=== PATIENT | female | born 1940 | race Caucasian/White ===

== ENCOUNTER 2017-06-17 07:49 | Day surgery (SDC) | payer MEDICAID, OTHER ==
[~2017-06-17] VITALS: Ht 157.5 cm; Wt 70.5 kg
[~2017-06-17 07:49] MED LIST: MitoMYcin 0.2 MG/VIAL KIT FOR OPHTHALMIC USE OS ONE
[2017-06-17] MEDS ORDERED: FentaNYL CITRATE-PF 100 MCG/2 ML VIAL IVP ONE (07:50)
[2017-06-17] MEDS ORDERED: MIDAZOLAM HCL 2 MG/2 ML VIAL IVP ONE (07:50)
[2017-06-17] MEDS ORDERED: BALANCED SALT 15 ML OPHTHALMIC IRRIG.SOLN OS ONE (07:50)
[2017-06-17] MEDS ORDERED: POVIDONE-IODINE 10% 15 ML SOLUTION UD TP ONE (07:50)
[2017-06-17] MEDS ORDERED: NEOMYCIN/POLYMYXIN B/DEXAMETH 3.5 GM OPHTHALMIC OINTMENT OD ONE (07:50)
[2017-06-17] MEDS ORDERED: TETRACAINE HCL/PF 0.5% 4 ML OPHTHALMIC SOLUTION OD ONE (07:50)
[2017-06-17] MEDS ORDERED: LIDOCAINE HCL 2%/EPI 1:200,000/PF 10 ML VIAL IARTIC ONE (07:50)
[2017-06-17] MEDS ORDERED: BUPIVACAINE HCL/PF 0.75% 10 ML OPHTHALMIC SOLUTION OD ONE (07:50)
[2017-06-17] MEDS ORDERED: DICLOFENAC SODIUM 0.1% 2.5 ML OPHTHALMIC SOLUTION ONE (08:06)
[2017-06-17] MEDS ORDERED: MOXIFLOXACIN HCL 0.5% 3 ML OPHTHALMIC SOLUTION ONE (08:06)
[2017-06-17] MEDS ORDERED: RINGERS SOLUTION,LACTATED 500 ML IV ONE ×2 (08:06→09:00)
[2017-06-17] MEDS ORDERED: MULT1TAB70 PO (08:42)
[2017-06-17] MEDS ORDERED: CALC-1038 PO (08:42)
[2017-06-17] MEDS ORDERED: ASPI-1182 PO (08:42)
[2017-06-17] MEDS ORDERED: MOXIFLOXACIN HCL 0.5% 3 ML OPHTHALMIC SOLUTION OS ONE (09:00)
[2017-06-17] MEDS ORDERED: DICLOFENAC SODIUM 0.1% 2.5 ML OPHTHALMIC SOLUTION OS ONE (09:00)
[2017-06-17 09:17] LABS: GLUCOSE,POINT OF CARE 82 MG/DL (70-110)
== END 2017-06-17 13:15 | disposition home or self-care (01) ==
LOC: SURGERY 07:49
PROVIDERS: ATTEND Specialist
DX: H11.052 Peripheral pterygium, progressive, left eye (principal); K21.9 Gastro-esophageal reflux disease without esophagitis; F41.9 Anxiety disorder, unspecified; Z79.82 Long term (current) use of aspirin; Z90.89 Acquired absence of other organs; Z90.710 Acquired absence of both cervix and uterus; Z79.899 Other long term (current) drug therapy
CPT/HCPCS: 65426; 82962; 88304; 93005; C1768; J2250; J3010; J3490; J7120

== ENCOUNTER 2018-03-03 07:33 | Day surgery (SDC) | payer OTHER ==
[~2018-03-03] VITALS: Ht 162.6 cm; Wt 70.0 kg
[~2018-03-03 07:33] MED LIST changes: +ASPI-1182 PO; +CALC-1038 PO; +HYPR15DR23 PO; +MULT1TAB70 PO; -MitoMYcin 0.2 MG/VIAL KIT FOR OPHTHALMIC USE OS ONE; +VITAD400 PO
[2018-03-03] MEDS ORDERED: MIDAZOLAM HCL 2 MG/2 ML VIAL IVP ONE (07:34)
[2018-03-03] MEDS ORDERED: DICLOFENAC SODIUM 0.1% 2.5 ML OPHTHALMIC SOLUTION ONE (08:44)
[2018-03-03] MEDS ORDERED: RINGERS SOLUTION,LACTATED 500 ML IV ONE ×2 (08:44→09:00)
[2018-03-03] MEDS ORDERED: MOXIFLOXACIN HCL 0.5% 3 ML OPHTHALMIC SOLUTION ONE (08:45)
[2018-03-03] MEDS ORDERED: TROPICAMIDE 1% 2 ML OPHTHALMIC SOLUTION ONE (08:45)
[2018-03-03] MEDS ORDERED: PHENYLEPHRINE HCL 2.5% 2 ML OPHTHALMIC SOLUTION ONE (08:45)
[2018-03-03] MEDS ORDERED: MOXIFLOXACIN HCL 0.5% 3 ML OPHTHALMIC SOLUTION OS ONE (09:00)
[2018-03-03] MEDS ORDERED: 0.9% SODIUM CHLORIDE 10 ML SYRINGE IVP PRN (09:00)
[2018-03-03] MEDS ORDERED: DICLOFENAC SODIUM 0.1% 2.5 ML OPHTHALMIC SOLUTION OS ONE (09:00)
[2018-03-03] MEDS: TROPICAMIDE 1% 2 ML OPHTHALMIC SOLUTION OS SCH ×2 (09:06→09:11)
[2018-03-03] MEDS: PHENYLEPHRINE HCL 2.5% 2 ML OPHTHALMIC SOLUTION OS SCH ×2 (09:06→09:11)
[2018-03-03] MEDS ORDERED: TETRACAINE HCL VISCOUS 0.5% 0.6 ML OPHTHALMIC SOLUTION ONE (21:53)
[2018-03-03] MEDS ORDERED: LIDOCAINE HCL 1% 20 ML VIAL ONE (21:53)
[2018-03-03] MEDS ORDERED: POVIDONE-IODINE 10% 15 ML SOLUTION UD ONE (21:53)
[2018-03-03] MEDS ORDERED: HYALURONATE SODIUM 12 MG/ML 0.8 ML SYRINGE IO ONE (21:53)
[2018-03-03] MEDS ORDERED: HYALURONATE SOD/CHONDROITIN SOD 0.5 ML VIAL IO ONE (21:53)
[2018-03-03] MEDS ORDERED: DEXAMETHASONE SOD PHOS 4 MG/ML VIAL ONE (21:53)
== END 2018-03-03 12:10 | disposition short-term general hospital (02) ==
LOC: SURGERY 07:33
PROVIDERS: ATTEND Specialist
DX: E11.36 Type 2 diabetes mellitus with diabetic cataract (principal); H25.012 Cortical age-related cataract, left eye; I10 Essential (primary) hypertension; F41.8 Other specified anxiety disorders; K21.9 Gastro-esophageal reflux disease without esophagitis; G47.33 Obstructive sleep apnea (adult) (pediatric); Z79.82 Long term (current) use of aspirin; Z90.710 Acquired absence of both cervix and uterus; Z90.89 Acquired absence of other organs; Z98.890 Other specified postprocedural states; Z79.899 Other long term (current) drug therapy
CPT/HCPCS: 65785; 93005; J1100; J2250; J3490; J7120

== ENCOUNTER 2018-04-07 09:05 | Day surgery (SDC) | payer OTHER ==
[~2018-04-07] VITALS: Ht 142.2 cm; Wt 50.0 kg
[~2018-04-07 09:05] MED LIST changes: +DICLOFENAC SODIUM 0.1% 2.5 ML OPHTHALMIC SOLUTION OD ONE; +DICLOFENAC SODIUM 0.1% 2.5 ML OPHTHALMIC SOLUTION ONE; +HYPR15DR23 OU; -HYPR15DR23 PO; +MOXIFLOXACIN HCL 0.5% 3 ML OPHTHALMIC SOLUTION OD ONE; +MOXIFLOXACIN HCL 0.5% 3 ML OPHTHALMIC SOLUTION ONE; +PHENYLEPHRINE HCL 2.5% 2 ML OPHTHALMIC SOLUTION ONE; +RINGERS SOLUTION,LACTATED 0 ML IV ONE; +RINGERS SOLUTION,LACTATED 500 ML IV ONE; +TROPICAMIDE 1% 2 ML OPHTHALMIC SOLUTION ONE; +VITA200T6 PO; -VITAD400 PO
[2018-04-07] MEDS ORDERED: BALANCED SALT 15 ML OPHTHALMIC IRRIG.SOLN OD ONE (09:06)
[2018-04-07] MEDS ORDERED: MIDAZOLAM HCL 2 MG/2 ML VIAL IVP ONE (09:06)
[2018-04-07] MEDS ORDERED: POVIDONE-IODINE 10% 15 ML SOLUTION UD TP ONE (09:06)
[2018-04-07] MEDS ORDERED: LIDOCAINE/PF 1% 2 ML VIAL IM ONE (09:06)
[2018-04-07] MEDS ORDERED: EPINEPHrine 1:1,000 [1 MG/ML] AMP IM ONE (09:06)
[2018-04-07] MEDS ORDERED: HYALURONATE SODIUM 10 MG/ML 0.85 ML SYRINGE IO ONE (09:06)
[2018-04-07] MEDS ORDERED: TETRACAINE HCL VISCOUS 0.5% 0.6 ML OPHTHALMIC SOLUTION OD ONE (09:06)
[2018-04-07] MEDS ORDERED: 0.9% SODIUM CHLORIDE 10 ML VIAL IVP ONE (09:06)
[2018-04-07] MEDS ORDERED: FentaNYL CITRATE-PF 100 MCG/2 ML VIAL IVP ONE (09:06)
[2018-04-07] MEDS: PHENYLEPHRINE HCL 2.5% 2 ML OPHTHALMIC SOLUTION OD SCH ×2 (10:13→10:20)
[2018-04-07] MEDS: TROPICAMIDE 1% 2 ML OPHTHALMIC SOLUTION OD SCH ×2 (10:13→10:20)
== END 2018-04-07 12:30 | disposition home or self-care (01) ==
LOC: SURGERY 09:05
PROVIDERS: ATTEND Specialist
DX: E11.36 Type 2 diabetes mellitus with diabetic cataract (principal); H25.011 Cortical age-related cataract, right eye; Z90.710 Acquired absence of both cervix and uterus; Z98.42 Cataract extraction status, left eye; Z90.89 Acquired absence of other organs; Z79.01 Long term (current) use of anticoagulants; Z79.82 Long term (current) use of aspirin; Z98.890 Other specified postprocedural states; Z79.899 Other long term (current) drug therapy
CPT/HCPCS: 65785; 66984; C1780; J2250; J3010; J7120; J0171; J3490